=== PATIENT | male | born 1990 | race African-American/Black ===

== ENCOUNTER 2018-07-22 11:11 | Emergency (ER) | payer MEDICAID, OTHER ==
[~2018-07-22] VITALS: Ht 175.3 cm; Wt 69.8 kg
[2018-07-22] MEDS ORDERED: AZITHROMYCIN 500 MG TABLET PO ONE (11:45)
[2018-07-22] MEDS ORDERED: CEFTRIAXONE SODIUM 250 MG/VIAL IM ONE (11:45)
[2018-07-22 12:34] VITALS: BP 128/50
== END 2018-07-22 12:36 | disposition home or self-care (01) ==
LOC: ER 11:11
DX: N34.2 Other urethritis (principal)
CPT/HCPCS: 96372; 99283; J0696

== ENCOUNTER 2018-09-24 08:40 | Emergency (ER) | payer OTHER ==
[~2018-09-24] VITALS: Ht 175.3 cm; Wt 68.4 kg
[2018-09-24 09:09] VITALS: BP 124/77
== END 2018-09-24 10:00 | disposition home or self-care (01) ==
LOC: ER 08:49
DX: Z48.02 Encounter for removal of sutures (principal)
CPT/HCPCS: 99281

== ENCOUNTER 2018-09-30 18:35 | Emergency (ER) | payer OTHER ==
[~2018-09-30] VITALS: Ht 175.3 cm; Wt 69.0 kg
[2018-09-30 19:48] VITALS: BP 105/50
== END 2018-09-30 22:58 | disposition left against medical advice (07) ==
LOC: ER 18:35
DX: Z53.21 Procedure and treatment not carried out due to patient leaving prior to being seen by health care provider (principal)